=== PATIENT | female | born 1930 | race Caucasian/White ===

== ENCOUNTER 2017-01-05 14:50 | Emergency (ER) | payer OTHER ==
[~2017-01-05 14:50] MED LIST: ACET325T9 PO; CLOT12CR2 TP; ESCI10TA PO; FURO-69 PO; GABA-585 PO; HYDR-971 PO; NYST1000 PO; [UNRECOGNIZED DRUG - OTHER]
--- NOTE | 2017-01-05 15:07 | EKG ---
[address] [address] Test Date: 2017-01-05 Test Time: 15:06:35 Pat Name: LAWSON MANDEL Department: Room: Gender: F Professor Of Medicine: : 1930 Requested By: GARCIA VILLAGOMEZ Order Number: [id number] Reading MD: Measurements Intervals [place] Rate: 97 P: -11 ID: [id number] QRS: -38 QRSD: 78 T: 83 QT: 328 QTc: 421 Interpretive Statements SINUS RHYTHM ABNORMAL LEFT AXIS DEVIATION LEFT ANTERIOR FASCICULAR BLOCK QRS(T) CONTOUR ABNORMALITY CONSIDER ANTEROLATERAL MYOCARDIAL DAMAGE ABNORMAL ECG RI6.01 Unconfirmed report Compared to ECG 09/05/2016 15:12:03 Left-axis deviation now present Left anterior fascicular block now present
[2017-01-05] MEDS: ACETAMINOPHEN 325 MG TABLET PO ONE (15:15)
[2017-01-05 15:27] LABS: BGAS PH 7.43 (7.35-7.45)
[2017-01-05 15:30] LABS: BASO % 0 % (0-3); EOS # 0.1 x10^3/uL (0.0-0.7); EOS % 1 % (0-3); HEMOGLOBIN 11.4 g/dL (12.0-15.5); LYMPH % 7 % (24-48); MEAN CORPUSCULAR HEMOGLOBIN 32 pg (25-35); MEAN CORPUSCULAR HGB CONC 33 g/dL (31-37); MEAN CORPUSCULAR VOLUME 100 fL (79-100); MONO # 0.4 x10^3/uL (0.0-1.1); MONO % 3 % (0-9); NEUT # 12.3 x10^3uL (1.8-7.7); NEUT % 89 % (31-73); PLATELET COUNT 211 x10^3/uL (140-400); RED BLOOD COUNT 3.51 x10^6/uL (3.50-5.40); RED CELL DISTRIBUTION WIDTH 13.5 % (11.5-14.5); WHITE BLOOD COUNT 13.8 x10^3/uL (4.0-11.0)
--- NOTE | 2017-01-05 15:39 | RAD ---
Portable chest, 01/05/2017: History: Fever, chest pain, altered mental status Comparison is made to a study from 09/05/2016. The patient positioning is kyphotic. The depth of inspiration is poor. The heart is not well defined due to the high diaphragms but appears to be at the upper limits of normal in size. There is aortic atherosclerosis. There are prominent perihilar markings with poor definition of the underlying pulmonary vasculature. This is accentuated by the poor depth of inspiration. No pleural fluid is seen. IMPRESSION: Mild bilateral atelectasis atelectasis/infiltrate superimposed upon fibrosis and accentuated by the poor depth of inspiration.
[2017-01-05 15:49] LABS: ALBUMIN 2.9 g/dL (3.4-5.0); ALBUMIN/GLOBULIN RATIO 0.6 (1.0-1.7); CALCIUM 8.6 mg/dL (8.5-10.1); CREATININE 2.2 mg/dL (0.6-1.0); GFR 21.2; TOTAL BILIRUBIN 0.4 mg/dL (0.2-1.0); TOTAL PROTEIN 7.6 g/dL (6.4-8.2)
[2017-01-05 15:58] LABS: C REACTIVE PROTEIN 21.6 mg/L (0-3.3)
[2017-01-05] MEDS: ACETAMINOPHEN 650 MG SUPP.RECT. PR ONE (16:00)
[2017-01-05] MEDS ORDERED: PIPERACILLIN/TAZOBACTAM 3.375 GM VIAL IV ONE (16:13)
[2017-01-05] MEDS ORDERED: IV NORMAL SALINE 50ML 50 ML ONE (16:14)
[2017-01-05] MEDS: IV NORMAL SALINE 1,000ML 1,000 ML IV ONE ×2 (16:40→18:30)
[2017-01-05] MEDS: PIPERACILLIN/TAZOBACTAM 3.375 GM in IV NORMAL SALINE 50ML 50 ML IV ONE (17:25)
[2017-01-05 17:29] LABS: CLARITY,URINE HAZY; COLOR,URINE YELLOW
--- NOTE | 2017-01-05 17:29 | ED.ADGEN ---
Past History Past Medical History: Anemia, Angina, Anxiety, Constipation, COPD, Depression, Diabetes, GERD, High Cholesterol, Renal Disease Past Surgical History: Other Alcohol Use: None Drug Use: None Adult General Chief Complaint Chief Complaint Fever, altered mental status HPI HPI Patient is a 86-year-old [facility] patient with history of dementia, blindness, kidney disease who presents with fever 103, change in mental status. Symptom onset was earlier today at [facility]. Patient was also reportedly nauseated and vomited per staff members. On ED arrival, patient's febrile the 102, tachycardic with normal blood pressure with nonlabored respirations. On exam, there is a yeast infection to both breasts with secondary cellulitis of left chest and left upper extremity. Tenderness is noted as well. Patient reports arm pain tenderness. Denies chest pain, cough, sore throat, normal pain. History is limited due to poor short-term memory. Review of Systems Review of Systems Review symptoms as per history of present illness. Limited due to dementia. Current Medications Current Medications Current Medications Medications (Trade) Dose Ordered Sig/Iris Start Time Stop Time Status Last Admin Dose Admin Acetaminophen (Tylenol) 650 mg 1X ONCE 01/05/17 15:15 01/05/17 15:16 DC Acetaminophen 650 mg 650 mg 1X ONCE 01/05/17 16:00 01/05/17 16:01 DC 01/05/17 16:00 650 MG Levofloxacin/ Dextrose 100 ml @ 100 mls/hr 1X ONCE 01/05/17 16:40 01/05/17 17:39 01/05/17 16:40 100 MLS/HR Piperacillin Sod/ Tazobactam Sod 3.375 gm 3.375 gm STK-MED ONCE 01/05/17 16:13 01/05/17 16:14 DC Piperacillin Sod/ Tazobactam Sod/ Sodium Chloride (Zosyn/Iv Sodium Chloride 0.9% 50ml) 50 ml @ 100 mls/hr 1X ONCE 01/05/17 16:40 01/05/17 17:09 DC Sodium Chloride (Iv Sodium Chloride 0.9% 1,000ml) 1,000 ml @ 1,000 mls/hr 1X ONCE 01/05/17 17:30 01/05/17 18:29 UNV Vancomycin HCl 1 gm/Sodium Chloride 250 ml @ 250 mls/hr 1X ONCE 01/05/17 17:15 01/05/17 18:14 Allergies Allergies Allergies Coded Allergies Type Severity Reaction Last Updated Verified No Known Drug Allergies 09/05/16 No Physical Exam Physical Exam Constitutional: Ill-appearing chronically debilitated. HENT: Normocephalic, atraumatic, bilateral external ears normal, oropharynx moist, no oral exudates, nose normal. Eyes: Pupils equally round. Neck: Normal ROM, supple. Cardiovascular: Rate and rhythm. Lungs & Thorax: Bilateral breath sounds clear to auscultation. Abdomen: Bowel sounds normal, soft, no tenderness. Skin: Yeast dermatitis under her breasts folds, cellulitis involving left anterior chest, left upper extremity extending to elbow. No induration, tissue breakdown or weeping. Back: No pain. Extremities: No tenderness or deformities. Neurologic: Alert and oriented X 1, no focal deficits noted. Psychologic: Affect, flat. Current Patient Data Lab Results Laboratory Tests Test 01/05/17 15:13 01/05/17 15:15 White Blood Count 13.8x10^3/uL (4.0-11.0) H Red Blood Count 3.51x10^6/uL (3.50-5.40) Hemoglobin 11.4g/dL (12.0-15.5) L Hematocrit 35.0% (36.0-47.0) L Mean Corpuscular Volume 100fL (79-100) Mean Corpuscular Hemoglobin 32pg (25-35) Mean Corpuscular Hemoglobin Concent 33g/dL (31-37) Red Cell Distribution Width 13.5% (11.5-14.5) Platelet Count 211x10^3/uL (140-400) Neutrophils (%) (Auto) 89% (31-73) H Lymphocytes (%) (Auto) 7% (24-48) L Monocytes (%) (Auto) 3% (0-9) Eosinophils (%) (Auto) 1% (0-3) Basophils (%) (Auto) 0% (0-3) Neutrophils # (Auto) 12.3x10^3uL (1.8-7.7) H Lymphocytes # (Auto) 1.0x10^3/uL (1.0-4.8) Monocytes # (Auto) 0.4x10^3/uL (0.0-1.1) Eosinophils # (Auto) 0.1x10^3/uL (0.0-0.7) Basophils # (Auto) 0.0x10^3/uL (0.0-0.2) Sodium Level 140mmol/L (136-145) Potassium Level 5.0mmol/L (3.5-5.1) Chloride Level 104mmol/L (98-107) Carbon Dioxide Level 26mmol/L (21-32) Anion Gap 10 (6-14) Blood Urea Nitrogen 26mg/dL (7-20) H Creatinine 2.2mg/dL (0.6-1.0) H Estimated GFR (Cockcroft-Gault) 21.2 BUN/Creatinine Ratio 12 (6-20) Glucose Level 117mg/dL (70-99) H Lactic Acid Level 0.9mmol/L (0.4-2.0) Calcium Level 8.6mg/dL (8.5-10.1) Total Bilirubin 0.4mg/dL (0.2-1.0) Aspartate Amino Transferase (AST) 27U/L (15-37) Alanine Aminotransferase (ALT) 17U/L (14-59) Alkaline Phosphatase 105U/L (46-116) C-Reactive Protein 21.6mg/L (0-3.3) H Total Protein 7.6g/dL (6.4-8.2) Albumin 2.9g/dL (3.4-5.0) L Albumin/Globulin Ratio 0.6 (1.0-1.7) L Blood pH 7.43 (7.35-7.45) Blood Gas PCO2 40mmHg (35-45) Blood Gas PO2 54mmHg (71-100) L Blood Gas HCO3 26mmol/L (22-26) Arterial Bld O2 Saturation (Calc) 89% (92-99) L FiO2 21% EKG EKG [EKG: Normal sinus rhythm.] Radiology/Procedures Radiology/Procedures [Chest x-ray, pulmonary fibrosis with mild bilateral atelectasis/infiltrate per radiology report.] Impressions: Sepsis secondary to cellulitis. Course & Med Decision Making Course & Med Decision Making Pertinent Labs and Imaging studies reviewed. (See chart for details) [Hypotensive. 2 L of normal saline given with systolic blood pressure greater than 110. Reluctance to provide a 30 mL/kg bolus due to concern of her lying heart failure. Antibiotic therapy provided. Dr. Khan accepted at [facility] accepts to ICU. Patient's duraable medical power of civil attorney updated. Patient confirms patient's DNR status. Final Impression Final Impression [1. Sepsis 2. Cellulitis 3. hypotension] Problems: Dragon Disclaimer Dragon Disclaimer This electronic medical record was generated, in whole or in part, using a voice recognition dictation system. GARCIA VILLAGOMEZ DO Jan 05, 2017 17:15
[2017-01-05 17:30] LABS: BACTERIA,URINE 0 /HPF (0-FEW); BILIRUBIN,URINE NEG (NEG); GLUCOSE,URINE NEG (NEG); NITRITE,URINE NEG (NEG); SQUAMOUS EPITHELIAL CELL,UR FEW /LPF; UROBILINOGEN,URINE 0.2 mg/dL (0.2 mg/dL)
[2017-01-05] MEDS: VANCOMYCIN 1 GM in IV NORMAL SALINE 250ML 250 ML IV ONE (17:45)
[2017-01-05] MEDS ORDERED: VANCOMYCIN 1 GM VIAL. ONE (18:25)
[2017-01-05] MEDS ORDERED: IV NORMAL SALINE 250ML 250 ML ONE (18:25)
[2017-01-05 19:45] VITALS: BP 96/50
== END 2017-01-05 19:51 | disposition short-term general hospital (02) ==
LOC: ER 14:50
DX: A41.9 Sepsis, unspecified organism (principal); L03.313 Cellulitis of chest wall; I95.9 Hypotension, unspecified; J44.9 Chronic obstructive pulmonary disease, unspecified; E11.9 Type 2 diabetes mellitus without complications; K21.9 Gastro-esophageal reflux disease without esophagitis; E78.00 Pure hypercholesterolemia, unspecified; N28.9 Disorder of kidney and ureter, unspecified; H54.0 Blindness, both eyes; F03.90 Unspecified dementia, unspecified severity, without behavioral disturbance, psychotic disturbance, mood disturbance, and anxiety; Z86.2 Personal history of diseases of the blood and blood-forming organs and certain disorders involving the immune mechanism
CPT/HCPCS: 36415; 36600; 51702; 71010; 80053; 81001; 82803; 82947; 83605; 85027; 86140; 87040; 93005; 96365; 96366; 96368; 99285; J1956; J2543; J3370; J7050; J7030

== ENCOUNTER 2017-09-26 13:29 | Emergency (ER) | payer OTHER ==
[~2017-09-26] VITALS: Ht 142.2 cm; Wt 47.6 kg
[~2017-09-26 13:29] MED LIST changes: -ESCI10TA PO; +ESCITALOPRAM OX10 MG PO
--- NOTE | 2017-09-26 14:19 | PHYS DOC ---
Past History Past Medical History: Anxiety, Cancer, CHF, COPD, High Cholesterol, Other Past Surgical History: Other Alcohol Use: None Drug Use: None Adult General Chief Complaint Chief Complaint: MECHANICAL FALL HPI HPI Patient is a pleasant 87-year-old female with end-stage renal disease history of aspiration, she is nonverbal, blind, has history of insomnia, has history of anxiety, has history of COPD, cataracts, hypertension, increased hyperlipidemia and aphasia who is on hospice care in a alf who presents to the ER today creasing pain in her left leg and hip after a fall out of a chair last night. Patient is normally able to get her medications orally. According to the nursing staff she is not eating well due to the pain. On arrival patient has no complaints as she is nonverbal she is able to answer questions with moans and seems to be explained that she is in discomfort. Review of Systems Review of Systems Due to medical condition and nonverbal state patient not able to provide any history or information about her present condition. All other systems were reviewed and found to be within normal limits, except as documented in this note. Allergies Allergies Allergies Coded Allergies Type Severity Reaction Last Updated Verified No Known Drug Allergies 09/05/16 No Physical Exam Physical Exam Constitutional: Well developed, well nourished, no acute distress, non-toxic appearance. [] HENT: Normocephalic, atraumatic, bilateral external ears normal, oropharynx moist, no oral exudates, nose normal. [] Eyes: PERRLA, EOMI, conjunctiva normal, no discharge. [] Neck: Normal range of motion, no tenderness, supple, no stridor. [] Cardiovascular:Heart rate regular rhythm, no murmur [] Lungs & Thorax: Bilateral breath sounds clear to auscultation [] Abdomen: Bowel sounds normal, soft, no tenderness, no masses, no pulsatile masses. [] Skin: Warm, dry, no erythema, no rash. [] Back: No tenderness, no CVA tenderness. [] Extremities: No tenderness, no cyanosis, no clubbing, ROM intact, no edema. [] Neurologic: Alert and oriented X 3, normal motor function, normal sensory function, no focal deficits noted. [] Psychologic: Affect normal, judgement normal, mood normal. [] Current Patient Data Vital Signs Vital Signs Date Time Temp Pulse Resp B/P (MAP) Pulse Ox O2 Delivery O2 Flow Rate FiO2 12/12/17 13:39 97.6 72 20 93 EKG EKG [] Radiology/Procedures Radiology/Procedures []Limited 3 view films of the pelvis and left hip as well as femur demonstrated femoral neck fracture, it is angulated and displaced. IMAGING REPORT Signed PATIENT: LAWSON MANDEL ACCOUNT: [id number] : 1930 LOCATION: ER AGE: 87 SEX: F EXAM [id number] STATUS: REG ER ORD. PHYSICIAN: CAROLANN EDWARD MD REASON: fall PROCEDURE: HIP LEFT 2V WITH PELVIS; LEFT FEMUR XRAY Pelvis with left hip, 3 views, 09/26/2017: History: Fall There is severe bony demineralization. No pelvic fracture is identified. There is a comminuted fracture at the base of the left femoral neck with a moderate varus deformity at the fracture site. There is questionable extension into the intertrochanteric region. The femoral head is seated within the acetabulum. There is only mild degenerative change at the left hip joint. Arterial calcifications are present. IMPRESSION: 1. Severe bony demineralization. 2. Comminuted basicervical left femoral neck fracture. Left femur, 2 views, 09/26/2017: Views of the distal femur reveal no additional fracture there are mild degenerative changes at the knee joint. IMPRESSION: No additional femoral fracture is evident. DICTATED AND SIGNED BY: MARIANNE ESQUIVEL MD DATE: 09/26/17 1419 CC: CAROLANN EDWARD MD; RASHEEDA NICOLE DO ~ Course & Med Decision Making Course & Med Decision Making Pertinent Labs and Imaging studies reviewed. (See chart for details) .Infrastructure Analyst note: Dr Ge patient's PCP Infrastructure Analyst called at of the service initially at 2:14 PM Consult called back at Discussed the case I presented and they agreed to transfer back to the [facility] for definitive pain management and hip replacement by orthopedic surgery. Infrastructure Analyst note: Dr. Xavier Infrastructure Analyst called at of the service 2:15 PM Consult called back at 2:30 PM Discussed the case I presented and they agreed with admission. Asked me to admit to hospitalist customer service technician note: Hospitalist customer service technician called at of the service paged at 231 PM Consult called back at 232 Discussed the case I presented and they agreed with admission. Time of acceptance to 2:32 PM She will be admitted and transferred to [facility] for hip replaced on the hip femoral neck fracture with displacement and increasing angulation.. Patient will be kept nothing by mouth. She is neurologically at her baseline Dragon Disclaimer Dragon Disclaimer This electronic medical record was generated, in whole or in part, using a voice recognition dictation system. Departure Departure: Impression: Primary Impression: Fracture of left hip Disposition: XFER SHT-TRM HOSP Condition: GUARDED Referrals: RASHEEDA NICOLE DO (PCP) Patient Instructions: Hip Fracture (Upper Femoral Fracture), Hospice Care CAROLANN EDWARD MD Sep 26, 2017 14:19
--- NOTE | 2017-09-26 14:28 | RAD ---
Pelvis with left hip, 3 views, 09/26/2017: History: Fall There is severe bony demineralization. No pelvic fracture is identified. There is a comminuted fracture at the base of the left femoral neck with a moderate varus deformity at the fracture site. There is questionable extension into the intertrochanteric region. The femoral head is seated within the acetabulum. There is only mild degenerative change at the left hip joint. Arterial calcifications are present. IMPRESSION: 1. Severe bony demineralization. 2. Comminuted basicervical left femoral neck fracture. Left femur, 2 views, 09/26/2017: Views of the distal femur reveal no additional fracture there are mild degenerative changes at the knee joint. IMPRESSION: No additional femoral fracture is evident.
--- NOTE | 2017-09-26 15:00 | EKG ---
[address] [address] Test Date: 2017-09-26 Test Time: 14:41:04 Pat Name: LAWSON MANDEL Department: Room: Gender: F Aeroplane Pilot: YAMIL : 1930 Requested By: CAROLANN EDWARD Order Number: [id number] Reading MD: Measurements Intervals [place] Rate: 68 P: 0 GA: 178 QRS: -28 QRSD: 84 T: 31 QT: 402 QTc: 432 Interpretive Statements SINUS RHYTHM LEFTWARD AXIS OTHERWISE NORMAL ECG RI6.01 Unconfirmed report No previous ECG available for comparison
[2017-09-26] MEDS ORDERED: HYDROmorphone PF 1 MG/ML DISP.SYRIN IV ONE (15:30)
[2017-09-26 15:37] LABS: BASO % 0 % (0-3); EOS # 0.1 x10^3/uL (0.0-0.7); EOS % 1 % (0-3); HEMATOCRIT 32.4 % (36.0-47.0); HEMOGLOBIN 10.9 g/dL (12.0-15.5); LYMPH # 1.7 x10^3/uL (1.0-4.8); LYMPH % 21 % (24-48); MEAN CORPUSCULAR HEMOGLOBIN 33 pg (25-35); MEAN CORPUSCULAR HGB CONC 34 g/dL (31-37); MEAN CORPUSCULAR VOLUME 99 fL (79-100); MONO # 0.7 x10^3/uL (0.0-1.1); MONO % 9 % (0-9); NEUT # 5.8 x10^3uL (1.8-7.7); NEUT % 70 % (31-73); PLATELET COUNT 160 x10^3/uL (140-400); RED BLOOD COUNT 3.27 x10^6/uL (3.50-5.40); RED CELL DISTRIBUTION WIDTH 12.9 % (11.5-14.5); WHITE BLOOD COUNT 8.3 x10^3/uL (4.0-11.0)
[2017-09-26 16:01] LABS: ALBUMIN 2.4 g/dL (3.4-5.0); ALBUMIN/GLOBULIN RATIO 0.5 (1.0-1.7); CALCIUM 8.5 mg/dL (8.5-10.1); CREATININE 1.6 mg/dL (0.6-1.0); GFR 30.5; POTASSIUM 4.1 mmol/L (3.5-5.1); TOTAL BILIRUBIN 0.5 mg/dL (0.2-1.0); TOTAL PROTEIN 7.4 g/dL (6.4-8.2)
[2017-09-26 17:15] VITALS: BP 120/48
[2017-09-26 17:49] LABS: BILIRUBIN,URINE NEG (NEG); CLARITY,URINE CLEAR; COLOR,URINE YELLOW; GLUCOSE,URINE NEG (NEG)
[2017-09-26 17:50] LABS: BACTERIA,URINE 0 /HPF (0-FEW); HYALINE CASTS, URINE FEW /HPF; NITRITE,URINE NEG (NEG); SQUAMOUS EPITHELIAL CELL,UR FEW /LPF; UROBILINOGEN,URINE 0.2 mg/dL (0.2 mg/dL)
== END 2017-09-26 17:28 | disposition short-term general hospital (02) ==
LOC: ER 13:29
DX: S72.002A Fracture of unspecified part of neck of left femur, initial encounter for closed fracture (principal); I13.2 Hypertensive heart and chronic kidney disease with heart failure and with stage 5 chronic kidney disease, or end stage renal disease; N18.6 End stage renal disease; I50.9 Heart failure, unspecified; E78.00 Pure hypercholesterolemia, unspecified; J44.9 Chronic obstructive pulmonary disease, unspecified; F41.9 Anxiety disorder, unspecified; G47.00 Insomnia, unspecified; E03.9 Hypothyroidism, unspecified; W07.XXXA Fall from chair, initial encounter; Y93.89 Activity, other specified; Y99.8 Other external cause status; Y92.89 Other specified places as the place of occurrence of the external cause
CPT/HCPCS: 36415; 51702; 73502; 73552; 80053; 81001; 85025; 93005; 96372; 96374; 99285; J1170; J3010